=== PATIENT | male | born 1985 | race Caucasian/White ===

== ENCOUNTER → 2020-06-18 14:39 | Outpatient (BNVA) | payer SELFPAY | PROVIDERS: Visit Provider Registered Nurse | DX: Z02.6 Encounter for examination for insurance purposes (principal); S49.90XA Unspecified injury of shoulder and upper arm, unspecified arm, initial encounter | CPT/HCPCS: 80307 ==

== ENCOUNTER 2020-07-02 15:45 | Outpatient (CLI) | payer OTHER, SELFPAY ==
--- NOTE | 2020-07-02 16:00 | XR_ITS ---
WS: [id number] SHOULDER RIGHT TECHNIQUE: 3 views of the right shoulder CLINICAL INFORMATION: Right shoulder pain COMPARISON: None. FINDINGS: Normal acromioclavicular joint. Normal glenohumeral joint. Acromion is normal in appearance. Normal g lenoid. No evidence of acute fracture dislocation. XR/XR shoulder RT min 2V* [id number] IMPRESSION: Normal right shoulder.
== END 2020-07-02 15:46 | disposition home or self-care (01) ==
PROVIDERS: Visit Provider Registered Nurse
DX: M25.511 Pain in right shoulder (principal)
CPT/HCPCS: 73030

== ENCOUNTER → 2021-06-17 11:57 | Outpatient (BNVA) | payer SELFPAY | PROVIDERS: Visit Provider Nurse Practitioner | DX: S69.91XA Unspecified injury of right wrist, hand and finger(s), initial encounter (principal) | CPT/HCPCS: 73110 ==

== ENCOUNTER 2023-05-28 13:26 | Outpatient (CLI) | payer BC, SELFPAY ==
--- NOTE | 2023-05-28 14:30 | USCV_ITS ---
Sandeep Hollis Age: 37 Gender: M : 1985 Exam Date: 05/28/2023 14:59 Ordering Phys: Reba Medina Technologist: CALE Exam Location: [facility] – [place] Indication: CHEST PAIN BP: 140 / 70 HR: 88 Rhythm: Sinus Technical Quality: Poor because of body habitus MEASUREMENTS (Male / Female) Normal Values 2D ECHO LVOT Diameter 2.0 cm LV Ejection Fraction MOD 2C 68.1 % LV Ejection Fraction 2C AL 67.6 % LA Diameter 3.5 cm LA Width 3.0 cm LA Height 3.8 cm RA Width 2.7 cm RA Height 3.6 cm Aorta at Sinotubular Diameter 2.5 cm IVC Diameter 1.5 cm M-MODE Aortic Annulus Diameter 3.3 cm LA Ao Ratio MM 1.1 MV E Point Septal Separation 0.7 cm DOPPLER AV Peak Velocity 120.0 cm/s LVOT Peak Velocity 109.0 cm/s AV Area Cont Eq vti 2.9 cm squared AV Area Cont Eq pk 3.0 cm squared MV Peak Velocity 98.0 cm/s MV Area PHT 4.6 cm squared Mitral E to A Ratio 1.1 MV E' Velocity 47.5 cm/s Mitral E to MV E' Ratio 7.8 Mitral E to LV E' Lateral Ratio 7.0 Mitral E to LV E' Septal Ratio 8.8 TR Peak Velocity 137.6 cm/s TR Peak Gradient 7.6 mmHg TR Mean Velocity 116.5 cm/s TR Mean Gradient 5.6 mmHg TR Velocity Time Integral 34.4 cm TV Peak E Velocity 62.0 cm/s Right Atrial Pressure 3.0 mmHg Pulmonary Artery Systolic Pressu 10.6 mmHg PV Peak Velocity 110.0 cm/s RV Acceleration Time 0.2 s RV Ejection Time 0.3 s RV AcT/ET 0.6 FINDINGS Left Ventricle Technically limited quality echocardiogram because of poor ultrasonic windows. Grossly LV systolic function is normal. Right Ventricle Grossly normal Right Atrium Normal in size Left Atrium Normal in size Mitral Valve Grossly normal. Trace mitral regurgitation Aortic Valve Not well-visualized. No significant stenosis or regurgitation. Tricuspid Valve Not well-visualized. Trace tricuspid regurgitation. Pulmonic Valve Not well-visualized Pericardium Grossly normal Aorta Normal in size IVC Not well visualized CONCLUSIONS Technically limited quality echocardiogram because of poor ultrasonic windows. Grossly LV systolic function is normal. Trace mitral regurgitation Trace tricuspid regurgitation No comparison studies are available. Mick Thomas MD (Electronically Signed) Final Date: 28 May 2023 16:35 S
== END 2023-05-28 13:27 | disposition home or self-care (01) ==
PROVIDERS: PCP Nurse Practitioner Family; Visit Provider Nurse Practitioner Family
DX: R07.89 Other chest pain (principal); I08.1 Rheumatic disorders of both mitral and tricuspid valves
CPT/HCPCS: 93306